=== PATIENT | male | born 1985 | race Two or more races ===

== ENCOUNTER 2019-06-10 04:27 | Emergency (ER) | payer SELFPAY ==
[~2019-06-10] VITALS: Ht 167.6 cm; Wt 68.0 kg
--- NOTE | 2019-06-10 04:28 | NUR ---
PT CAME TO ER BED 11 C/O PALPITATIONS. PT ADMITS TO SMOKING METH FOR 3 DAYS STRAIGHT. 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 AAOX4. NOT IN ANY DISTRESS. NO SOB. BREATHING EVENLY AND UNLABORED. CONNECTED TO WIND TECHNICIAN.
[2019-06-10] MEDS ORDERED: LORAZEPAM 1 MG TABLET PO ONE (06:00)
--- NOTE | 2019-06-10 06:00 | NUR ---
Patient discharged to home in stable condition. Written and verbal after care instructions given. Patient verbalizes understanding of instruction.
[2019-06-10 06:09] VITALS: BP 126/71
== END 2019-06-10 06:09 | disposition home or self-care (01) ==
LOC: ER 04:28
DX: F15.10 Other stimulant abuse, uncomplicated (principal)